=== PATIENT | female | born 2005 | race Caucasian/White ===

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

== ENCOUNTER → 2023-06-07 11:25 | Outpatient (BNVA) | payer MEDICAID, SELFPAY | PROVIDERS: PCP Pediatrics Adolescent Medicine; Visit Provider Family Medicine | DX: R30.0 Dysuria (principal); Z34.90 Encounter for supervision of normal pregnancy, unspecified, unspecified trimester | CPT/HCPCS: 80307; 81000; 81025; 87086; 87255; 87491; 87591; 87624 ==

== ENCOUNTER → 2023-06-16 15:02 | Outpatient (BNVA) | payer MEDICAID, SELFPAY | PROVIDERS: PCP Pediatrics Adolescent Medicine; Visit Provider Family Medicine | DX: Z34.90 Encounter for supervision of normal pregnancy, unspecified, unspecified trimester (principal) | CPT/HCPCS: 80053; 84144; 84443; 85025; 86592; 86762; 86803; 86850; 86900; 87340; 87806 ==

== ENCOUNTER 2023-06-28 13:54 | Outpatient (CLI) | payer MEDICAID, SELFPAY ==
--- NOTE | 2023-06-28 14:30 | US_ITS ---
WS: [id number] LIMITED OBSTETRICAL ULTRASOUND HISTORY: Dating. COMPARISON: None available. Presentation: Variable. Cervix: Closed and normal length. Placenta: Anterior. Grade: 0 HEART: FHR of 144 BPM. measurements: BPD = 2.7 cm = 14w6d; HC = 10.4 cm = 15w0d; AC = 8.5 cm = 14w6d; FL = 1.6 cm = 14w4d; Normal surrounding amniotic fluid. EFW: 105 g; AGA by ultrasound: 14w6d MARIANA by ultrasound: 12/21/2023 US/US OB <= 14 weeks fetus [id number] IMPRESSION: 1. Single intrauterine gestation of 14 weeks 6 days with EDC of 12/21/2023. 2. Normal cardiac activity.
== END 2023-06-28 13:55 | disposition home or self-care (01) ==
PROVIDERS: PCP Pediatrics Adolescent Medicine; Visit Provider Family Medicine
DX: Z34.00 Encounter for supervision of normal first pregnancy, unspecified trimester (principal)
CPT/HCPCS: 76801; 80307; 81000; 81025; 87086; 87255; 87491; 87591; 87624

== ENCOUNTER → 2023-08-09 14:32 | Outpatient (BNVA) | payer BC, MEDICAID, SELFPAY | PROVIDERS: PCP Pediatrics Adolescent Medicine; Visit Provider Family Medicine | DX: Z34.00 Encounter for supervision of normal first pregnancy, unspecified trimester (principal); A74.9 Chlamydial infection, unspecified | CPT/HCPCS: 87491; 87591 ==

== ENCOUNTER 2023-08-10 11:58 | Outpatient (CLI) | payer BC, MEDICAID, SELFPAY ==
--- NOTE | 2023-08-10 12:15 | US_ITS ---
WS: [id number] OBSTETRICAL ULTRASOUND COMPLETE HISTORY: Anatomy screening study. COMPARISON: 06/28/2023 Single intrauterine gestation in variable presentation. Vertex at the end of the exam Cervix is Closed and normal length. Cervical length is 4.7 cm. Normal amount of amniotic fluid surrounds the fetus. Placenta: Posterior, no previa or abruption. Placenta grade 1 Heart: 136 BPM. Four chambers are identified. Neither outflow tract is well imaged. Anatomy: Intracranial structures and spine are normal. kidneys, stomach and urinary bladd er are unremarkable. Abdominal wall, three-vessel cord and cord insertion site are normal. 4 extremities are present. profile: Unremarkable. Gender: Male. measurements: BPD = 4.9 cm = 20w6d; HC = 18.3 cm = 20w5d; AC = 15.8 cm = 21w0d; FL = 3.4 cm = 20w5d; EFW: 380 g. Biometry is internally concordant. AGA by ultrasound: 20w6d MARIANA by ultrasound: 12/22/2023 IMPRESSION: 1. Single intrauterine gestation of 20w6d with an MARIANA of 12/22/2023. 2. Cardiac outflow tracts are not imaged adequately. The remaining screening survey is normal.
== END 2023-08-10 11:59 | disposition home or self-care (01) ==
PROVIDERS: PCP Pediatrics Adolescent Medicine; Visit Provider Family Medicine
DX: O98.812 Other maternal infectious and parasitic diseases complicating pregnancy, second trimester (principal); A74.9 Chlamydial infection, unspecified; Z3A.20 20 weeks gestation of pregnancy
CPT/HCPCS: 76805; 87491; 87591

== ENCOUNTER 2023-08-30 12:48 | Outpatient (CLI) | payer BC, MEDICAID, SELFPAY ==
--- NOTE | 2023-08-30 13:15 | US_ITS ---
WS: [id number] ULTRASOUND OB FOCUSED HISTORY: Follow up on cardiac outflow tracts COMPARISON: 08/10/2023 Single intrauterine gestation is present in cephalic position. Cervix is closed. heart rate at 147 BPM. Additional imaging of the outflow chambers demonstrates normal appearance of the outflow tracts. LVOT is normal. RVOT is normal. IMPRESSION: Normal follow-up imaging of the RIGHT and LEFT cardiac outflow tracts.
== END 2023-08-30 12:49 | disposition home or self-care (01) ==
PROVIDERS: PCP Pediatrics Adolescent Medicine; Visit Provider Family Medicine
DX: Z34.00 Encounter for supervision of normal first pregnancy, unspecified trimester (principal)
CPT/HCPCS: 76815

== ENCOUNTER → 2023-09-08 08:54 | Outpatient (BNVA) | payer BC, MEDICAID, SELFPAY | PROVIDERS: PCP Pediatrics Adolescent Medicine; Visit Provider Family Medicine | DX: Z34.00 Encounter for supervision of normal first pregnancy, unspecified trimester (principal) | CPT/HCPCS: 82950 ==

== ENCOUNTER → 2023-11-01 14:48 | Outpatient (BNVA) | payer BC, MEDICAID, SELFPAY | PROVIDERS: PCP Pediatrics Adolescent Medicine; Visit Provider Family Medicine | DX: Z51.81 Encounter for therapeutic drug level monitoring (principal) | CPT/HCPCS: 85025 ==

== ENCOUNTER → 2023-12-01 13:31 | Outpatient (BNVA) | payer BC, MEDICAID, SELFPAY | PROVIDERS: PCP Pediatrics Adolescent Medicine; Visit Provider Family Medicine | DX: Z34.90 Encounter for supervision of normal pregnancy, unspecified, unspecified trimester (principal) | CPT/HCPCS: 87081 ==

== ENCOUNTER 2023-12-20 22:00 | Inpatient (IN) | payer BC, MEDICAID, SELFPAY ==
[2023-12-20 18:55] VITALS: BMI 32.8
[2023-12-20 19:41] VITALS: RESP 16; TEMP 36.5
[2023-12-20] MEDS: calcium carbonate 500 mg Chew Tablet 1000 MG PO (19:54)
[2023-12-20] MEDS: acetaminophen 325 mg Tablet 1000 MG PO (19:54)
[2023-12-20 21:24] VITALS: RESP 15; TEMP 36.5
[2023-12-20 21:30] VITALS: BMI 32.4
[2023-12-20 22:17] LABS: Basophils # 0.1 10^3/uL (0.0-0.1); Basophils % 0.3 %; Eosinophils % 0.1 %; Hematocrit 39.2 % (36-47); Lymphocytes # 2.1 10^3/uL (1.5-6.5); Lymphocytes % 13.7 %; Mean Corpuscular HGB Conc 34.7 g/dL (30-55); Mean Corpuscular Volume 86.5 fl (85-98); Mean Platelet Volume 11.7 fL (7.4-10.4); Monocytes # 1.3 10^3/uL (0.2-0.9); Monocytes % 8.6 %; Neutrophils # 11.66 10^3/uL (1.8-8.0); Neutrophils % 75.9 %; Nucleated Red Blood Cells % 0 %; Platelet Count 198 10^3/cmm (157-399); Red Blood Count 4.53 10^6/uL (3.85-5.65); Red Cell Distribution Width 13.4 % (12.1-15.1); White Blood Count 15.37 10^3/uL (4.5-13.0)
[2023-12-20 22:18] VITALS: RESP 15
[2023-12-20] MEDS: fentaNYL 50 mcg/mL INJ 2mL IVP ×2 (22:18→23:19)
[2023-12-20] MEDS: lactated ringers 1,000 ML 999 ML IV (23:13)
[2023-12-20 23:19] VITALS: RESP 15
[2023-12-21] VITALS (7 sets, daily range): BP systolic 102–117; BP diastolic 65–78; PULSE 70–97; RESP 17–18; TEMP 36.8–38.3; O2SAT 96
--- NOTE | 2023-12-21 00:32 | ANES.PROC ---
Anesthesia Procedures Procedure/Date: 12/21/23 Epidural: Time Out Performed: Yes Consents Signed: Procedure Consent Consent: requested by attending/covering physician, from patient, risks and benefits reviewed and patient agrees to proceed Lumbar Level: L3-L4 Epidural position: sitting Epidural procedure: sterile prep of area, 1% lidocaine to numb the area, 18 g needle, neg for paresthesia, test dose given, 1.5% xylocaine 1:200k epi, 0.2% Ropivacaine bolus ml (4cc and Fentanyl 100 mcg), placed PCEA, no systemic response, sterile dressing applied, L.U.D. no apparent complications and 0.2% Ropiavacaine @ mls/hr (10cc/hour.) Other Information: ELVIRA at 6cm. Cath placed 2 cm into space. Pt tolerated well
[2023-12-21] MEDS: dextrose 5%-lactated ringers 1,000 ML 125 ML IV ×2 (00:33→05:49)
--- NOTE | 2023-12-21 00:34 | P.ANESASSM_ITS ---
Pre-Anesthetic Assessment Height/Weight: Height 1.65 m Weight 88.451 kg Temp Resp O2 Del Method 97.7 F 15 Room Air 12/20/23 21:24 12/20/23 23:19 12/20/23 21:30 Preop Diagnosis: Labor pain STEW Was Beta Mercedez taken within 24 hours: N/A Was Clonidine taken within 24 hours: N/A Social No alcohol and No tobacco Exam alert, oriented x 3, clear to auscultation bilaterally and regular rate & rhythm Airway Submandibular: within normal limits Cervical ROM: within normal limits Mallampati: Class II Dentition: full History/ROS No significant history except as noted and No significant complaints CV/HEM None reported None reported Hepatic None reported GI None reported Metabolic None reported Musc/skel None reported Neuropsych None reported Anesthetic Plan ASA status: 2 Anesthesia: Anesthesia Evaluation and Regional (specify below) (STEW) Risk of > 500 ml blood loss (7ml/kg in children): No Medications/Allergies Home Medications Medication Instructions Recorded Confirmed Last Taken Type doxylamine succinate 25 mg tablet See Rx Instructions .Route 06/07/23 12/20/23 Unknown Rx .COMPLEX PRN allergy symptoms #30 tabs prenat.vits,june,nsn-[id number]-[id number] 1 tab PO DAILY #30 tabs 06/07/23 12/20/23 Unknown Rx pyridoxine (vitamin B6) 100 mg 100 mg PO BID PRN Nausea #60 tabs 06/07/23 12/20/23 Unknown Rx tablet ondansetron HCl 4 mg tablet 4 mg PO Q6H PRN nausea and 06/13/23 12/20/23 Unknown Rx vomiting #30 tabs acyclovir 400 mg tablet 400 mg PO BID #60 tabs 12/15/23 12/20/23 Unknown Rx Allergies Allergy/AdvReac Type Severity Reaction Status Date / Time No Known Allergies Allergy Unverified 06/07/23 11:44 Current Medications Generic Name Dose Route Start Last Admin Trade Name Freq PRN Reason Stop Dose Admin Calcium Carbonate 1,000 mg 12/20/23 19:44 12/20/23 19:54 Calcium Carbonate 500 Mg Chew Tablet PO 1,000 mg Q4H PRN Administration HEARTBURN Fentanyl 25 - 100 mcg 12/20/23 21:24 12/20/23 23:19 Fentanyl 50 Mcg/Ml Inj 2ml IVP 50 mcg Q1H PRN Administration SEVERE PAIN Dextrose/Lactated Ringer's 1,000 mls @ 125 mls/hr 12/20/23 21:30 12/21/23 00:33 Dextrose 5%-Lactated Ringers IV 125 mls/hr .Q8H MARCELLO Administration Lactated Ringer's 1,000 mls @ 999 mls/hr 12/20/23 23:08 12/20/23 23:13 Lactated Ringers IV 999 mls/hr .Q1H1M PRN Administration See label comments PFSH Anesthesia Medical History No pertinent past medical history Surgical History No pertinent past surgical history Social History Smoking and tobacco/nicotine status: never used tobacco/nicotine Alcohol intake: never Substance/Drug Use: never Female Reproductive History : 1 Data Anesthesia 12/20/23 21:45 Short CBC 12/20/23 Range/Units 21:45 WBC 15.37 H (4.5-13.0) 10^3/uL Hgb 13.60 (12.4-14.8) g/dL Hct 39.2 (36-47) % MCV 86.5 (85-98) fl Plt Count 198 (157-399) 10^3/cmm Neut % (Auto) 75.9 % Neut # (Auto) 11.66 H (1.8-8.0) 10^3/uL Blood Bank 12/20/23 21:45 Blood Type O Positive Rho(D) Type Rh positive Antibody Screen Negative Cardiac Studies: 2 No Data to Display
[2023-12-21] MEDS: ROPivacaine syringe 100 MG/50 ML SYRINGE 10 MG EPIDURAL ×2 (00:38→03:40)
[2023-12-21] MEDS: alum-mag-hydroxide-sime 30 mL UDC PO (02:24)
[2023-12-21] MEDS: ampicillin 2,000 MG in sodium chloride 0.9% (plus) 50 ML 100 MG IV ×4 (05:02→22:22)
--- NOTE | 2023-12-21 05:05 | P.HP_ITS ---
Providers/Chief Complaint 2 Admitting Physician: Ramirez Robles MD Primary Care Provider: Allison Beard MD Chief Complaint: contractions History of Present Illness Katerin Dougherty is a 18 year old @ 39.6 weeks by US inconsistent with unsure LMP. Preg c/b h/o anxiety, THC use prior to , genital herpes, chlamydia, ASCUS. The patient presented to labor and delivery triage due to contractions. Her contractions had been gradually increasing all week, however they began to get significantly stronger and closer together starting on the morning of 12/20/2023. The patient began to have contractions every 3 to 5 minutes and presented to labor and delivery triage for further evaluation. She was 1 cm dilated and 80% effaced upon presentation and changed to 2 cm dilation after 2 hours. For this reason she was kept for spontaneous labor. The patient denies any chest pains, shortness of breath, nausea, vomiting, diarrhea, constipation, dysuria, leakage of fluid. Medications/Allergies Home Medications Medication Instructions Recorded Confirmed Last Taken Type doxylamine succinate 25 mg tablet See Rx Instructions .Route 06/07/23 12/20/23 Unknown Rx .COMPLEX PRN allergy symptoms #30 tabs prenat.vits,june,tyd-mlwu-fxyaq 1 tab PO DAILY #30 tabs 06/07/23 12/20/23 Unknown Rx pyridoxine (vitamin B6) 100 mg 100 mg PO BID PRN Nausea #60 tabs 06/07/23 12/20/23 Unknown Rx tablet ondansetron HCl 4 mg tablet 4 mg PO Q6H PRN nausea and 06/13/23 12/20/23 Unknown Rx vomiting #30 tabs acyclovir 400 mg tablet 400 mg PO BID #60 tabs 12/15/23 12/20/23 Unknown Rx Allergies Allergy/AdvReac Type Severity Reaction Status Date / Time No Known Allergies Allergy Unverified 06/07/23 11:44 PFSH Acute 2 PFSH: Medical History No pertinent past medical history Surgical History No pertinent past surgical history Social History (Updated 12/21/23 @ 06:02 by Ramirez Robles MD) Smoking and tobacco/nicotine status: never used tobacco/nicotine Alcohol intake: never Substance/Drug Use: former Former substance use details: THC Female Reproductive History: : 1 Vitals/I&O/Wt Last Vital Signs Temp 97.7 F 12/20/23 21:24 Resp 15 12/20/23 23:19 O2 Del Method Room Air 12/20/23 21:30 12/20/23 12/20/23 12/21/23 14:59 22:59 06:59 Intake Total 50 / 50 Balance 50 / 50 Weight last 48 hrs Weight 195 lb Weight 197 lb Physical Exam 2 Narrative: General: Alert and oriented x3 Eyes: Pupils equal round and reactive to light and accommodation Mouth: Mucous membranes moist, pharynx non-erythematous Cardiac: Regular rate and rhythm without murmurs Lungs: Clear to auscultation bilaterally without wheezes, crackles or rhonchi Abdomen: Soft, non-tender, fundus consistent with gestational age Extremities: Trace edema in the bilateral lower extremities Urinary Catheter Management: Jordan Latex: Cath Placed During This Visit: yes Urinary Catheter Date of Insertion: 12/21/23 Urinary Catheter Time of Insertion: 01:00 Data 12/20/23 21:45 A&P Assessment and plan (1) Supervision of normal intrauterine in primigravida: The patient is in spontaneous labor. She is mary well on her own. heart tones are in the mid 150s with moderate variability and good accelerations with a category 1 tracing. We will continue with routine intrapartum care. The patient is GBS negative. She has not had any burning or symptoms of a herpes outbreak. No lesions were noted. Qualifiers: Trimester: third trimester Qualified Code(s): Z34.03 - Encounter for supervision of normal first , third trimester (2) Genital herpes: Attestations 2 Medical Necessity Statement*: The patient will be here for greater than 2 midnights due to routine intrapartum and management of labor and delivery. Coding Level of Care Code Acute Code for Chg Fwd Diagnoses Encounter for supervision of normal first in third trimester Z34.03 Trimester: third trimester Genital herpes A60.00
[2023-12-21] MEDS: lidocaine 2% INJ 20 mL INJECTION (05:20)
--- NOTE | 2023-12-21 06:04 | PM.DELIVERY ---
Delivery Note: Date of delivery: December 21, 2023 Pre-delivery diagnoses: 1. Intrauterine at 39.6 weeks gestation 2. Anxiety 3. History of genital herpes 4. Chlamydia with test of cure Post-delivery diagnoses: 1. Intrauterine status post spontaneous vaginal delivery at 5:13 AM on 12/21/2023 2. Intrapartum fever 3. Anxiety 4. History of genital herpes 5. Chlamydia with test of cure Procedure: Spontaneous vaginal delivery Delivering Physician: Ramirez Robles MD Estimated blood loss (mL): 200 Findings: 1. Healthy male weighing 8 pounds 5 ounces with Apgars of 9 and 9 2. Intact placenta with central vocal cord insertion site. Pre-Delivery Course: Katerin Dougherty is a 18 year old G1 now P1 status post spontaneous vaginal delivery @ 39.6 weeks by US inconsistent with unsure LMP. Preg c/b h/o anxiety, THC use prior to , genital herpes, chlamydia, ASCUS. The patient presented to labor and delivery triage due to contractions. Her contractions had been gradually increasing all week, however they began to get significantly stronger and closer together starting on the morning of 12/20/2023. The patient began to have contractions every 3 to 5 minutes and presented to labor and delivery triage for further evaluation. She was 1 cm dilated and 80% effaced upon presentation and changed to 2 cm dilation after 2 hours. For this reason she was kept for spontaneous labor. The patient continues to make change on her own and had spontaneous rupture membranes at 11 PM on 12/20/2023. Meconium stained fluid was noted. She received a laboring epidural. The patient had a temperature in the 99.5 range and there was tachycardia in the low to mid 160s. IV ampicillin and gentamicin was ordered at approximately 4 AM. The ampicillin was started prior to delivery, however the gentamicin was not given until after delivery. The patient continued to make good progress on her own and was complete by 5:05 AM on 12/21/2023 Delivery: The patient began pushing at 5:08 AM and pushed very well. With only a few contractions, the infant distended quickly and the delivered at 5:13 AM on 12/21/2023 in the OA position. The left shoulder was the anterior shoulder and it delivered with ease. The rest of the infant delivered with ease. A nuchal cord was noted, however it was loose and the infant delivered through this. The began crying immediately upon delivery. The infant's mouth and nose were bulb suctioned by myself. The infant was then placed on the mother's chest where the nurses were waiting to care for him. The cord was clamped by myself after approximately 1 minute. The cord was cut by the infant's grandmother. Cord blood was obtained. The cord was then drained of blood and traction was placed on umbilical cord. The placenta delivered without complication at 5:17 AM on 12/21/2023. The placenta was noted to be intact with a central umbilical cord insertion site. The cervix was inspected and no lacerations were noted. The vaginal wall was inspected and a second-degree perineal laceration was noted that extended near the rectum, but not into the rectum. 3-0 Vicryl was used in a running fashion to repair the laceration. 1% lidocaine was used locally to help with anesthesia. The patient tolerated the procedure well. A rectal exam was done and no sutures were noted in the rectal vault. , the patient did have a temperature of 100.9 degrees. We will follow her course for further signs of chorioamnionitis. History History History 1 Term 0 0 Miscarriages/Ectopic 0 Living Children 0 Past Pregnancies Del. Date GA/Weeks Outcome Route Wt Inf Gender Labor Lgth Comp. Anesthesia Location 12/21/23 39 live - full term Vaginal 8 lb 5 oz Male 7 hr regional local [facility] Delivery Date: 12/21/23 Last Updated by: Ramirez Robles MD Made quick dilation, fast 2nd stage of labor, genital herpes without lesions, borderline chorioamionitis. A&P Assessment and plan (1) Spontaneous vaginal delivery: (2) Maternal fever during labor: Coding Level of Care Code Acute Code for Chg Fwd Diagnoses Spontaneous vaginal delivery O80 Maternal fever during labor O75.2
--- NOTE | 2023-12-21 14:24 | ANE.PACU2 ---
Inpatient post-anesthesia follow up: Airway intact: Yes Vital signs: Temperature 100.9 F Pulse Rate Respiratory Rate 15 Blood Pressure Pulse Oximetry Oxygen Delivery Me thod Room Air Oxygen Flow Rate Fraction of Inspir ed Oxygen Hydration adequate: Yes Nausea and vomiting: No Pain level: 2 Mental status: Baseline Epidural Start/End: Epidural Start Date: 12/21/23 Epidural Start Time: 00:15 Epidural End Date: 12/21/23 Epidural End Time: 06:04
[2023-12-21] MEDS: lanolin oint 7 gm 1 APPLIC TOPICAL (15:00)
[2023-12-21] MEDS: ibuprofen 800 mg tablet PO ×2 (16:14→21:17)
[2023-12-21] MEDS: docusate sodium 100 mg Capsule PO (16:15)
[2023-12-21 19:28] LABS: Hematocrit 30.9 % (36-47); Mean Corpuscular HGB Conc 34.3 g/dL (30-55); Mean Corpuscular Hemoglobin 30.7 pg (27-33); Mean Corpuscular Volume 89.6 fl (85-98); Mean Platelet Volume 11.6 fL (7.4-10.4); Platelet Count 166 10^3/cmm (157-399); Red Blood Count 3.45 10^6/uL (3.85-5.65); Red Cell Distribution Width 13.8 % (12.1-15.1); White Blood Count 15.72 10^3/uL (4.5-13.0)
[2023-12-21] MEDS: HYDROcodone-acetaminophen 5-325 mg Tablet PO (19:30)
[2023-12-21] MEDS: benzocaine-menthol 78 gm Canister 1 SPRAY TOPICAL (19:31)
[2023-12-22 04:00] VITALS: BP 114/66; PULSE 79; RESP 16; TEMP 36.4; O2SAT 98
[2023-12-22] MEDS: prenatal vitamin Capsule 1 CAP PO (09:27)
[2023-12-22] MEDS: docusate sodium 100 mg Capsule PO (09:27)
[2023-12-22] MEDS: ibuprofen 800 mg tablet PO (09:28)
[2023-12-22 09:40] VITALS: BP 110/67; PULSE 92; RESP 16; TEMP 36.9
--- NOTE | 2023-12-22 16:15 | P.DS_ITS ---
Discharge Providers Date of Admission: 12/20/23 22:00 Date of Discharge: December 22, 2023 Attending Provider at Admission: Ramirez Robles MD Attending Provider at Discharge: Ramirez Robles MD Primary Care Provider: Allison Beard MD Diagnoses at Discharge Discharge Diagnosis (1) Spontaneous vaginal delivery: Status: Acute (2) Maternal fever during labor: Status: Acute Other Information Additional DC diagnoses/information: 1. Intrauterine status post spontaneous vaginal delivery 2. Intrapartum fever 3. Anxiety 4. History of genital herpes 5. Chlamydia with test of cure 6. Delivery of healthy infant male weighing 8 pounds 5 ounces with Apgars 9 and 9 Reason for Visit Reason for Visit: contractions Brief History: Katerin Dougherty is a 18 year old G1 now P1 status post spontaneous vaginal delivery @ 39.6 weeks by US inconsistent with unsure LMP. Preg c/b h/o anxiety, THC use prior to , genital herpes, chlamydia, ASCUS. The patient presented to labor and delivery triage due to contractions. Her contractions had been gradually increasing all week, however they began to get significantly stronger and closer together starting on the morning of 12/20/2023. The patient began to have contractions every 3 to 5 minutes and presented to labor and delivery triage for further evaluation. She was 1 cm dilated and 80% effaced upon presentation and changed to 2 cm dilation after 2 hours. For this reason she was kept for spontaneous labor. Hospital Course Hospital Course The patient continues to make change on her own and had spontaneous rupture membranes at 11 PM on 12/20/2023. Meconium stained fluid was noted. She received a laboring epidural. The patient had a temperature in the 99.5 range and there was tachycardia in the low to mid 160s. IV ampicillin and gentamicin was ordered at approximately 4 AM. The ampicillin was started prior to delivery, however the gentamicin was not given until after delivery. The patient continued to make good progress on her own and was complete by 5:05 AM on 12/21/2023 The patient began pushing at 5:08 AM and pushed very well. With only a few contractions, the distended quickly and the infant delivered at 5:13 AM on 12/21/2023 in the OA position. The left shoulder was the anterior shoulder and it delivered with ease. The rest of the infant delivered with ease. A nuchal cord was noted, however it was loose and the infant delivered through this. The infant began crying immediately upon delivery. The 's mouth and nose were bulb suctioned by myself. The infant was then placed on the mother's chest where the nurses were waiting to care for him. The cord was clamped by myself after approximately 1 minute. The cord was cut by the infant's grandmother. Cord blood was obtained. The cord was then drained of blood and traction was placed on umbilical cord. The placenta delivered without complication at 5:17 AM on 12/21/2023. The placenta was noted to be intact with a central umbilical cord insertion site. The cervix was inspected and no lacerations were noted. The vaginal wall was inspected and a second-degree perineal laceration was noted that extended near the rectum, but not into the rectum. 3-0 Vicryl was used in a running fashion to repair the laceration. 1% lidocaine was used locally to help with anesthesia. The patient tolerated the procedure well. the patient had a fever initially and was started on insulin with clindamycin. She was given antibiotics for 24 hours. She has had no further signs of infection and is feeling well. She is ambulating, voiding, passing gas and tolerating food by mouth. Her bleeding is decreasing well. Her pain is well-controlled. She will plan to follow-up with me 6 weeks or sooner if needed. Physical Exam Narrative: General: Alert and oriented x3 Eyes: Pupils equal round and reactive to light and accommodation Mouth: Mucous membranes moist, pharynx non-erythematous Cardiac: Regular rate and rhythm without murmurs Lungs: Clear to auscultation bilaterally without wheezes, crackles or rhonchi Abdomen: Soft, non-tender, fundus consistent with gestational age Extremities: Trace edema in the bilateral lower extremities Urinary Catheter Management: Jordan Latex: Cath Placed During This Visit: yes, but has since been removed by the nurse Reason for Continuing Indwelling Catheter: Decision to DC Catheter Urinary Catheter Date of Insertion: 12/21/23 Urinary Catheter Time of Insertion: 01:00 Date Urinary Catheter Removed: 12/21/23 Time Urinary Catheter Discontinued: 05:06 Discharge Data Studies Completed and Pending Laboratory Results WBC 15.72 10^3/uL (4.5-13.0) H 12/21/23 18:41 RBC 3.45 10^6/uL (3.85-5.65) L 12/21/23 18:41 Hgb 10.60 g/dL (12.4-14.8) L 12/21/23 18:41 Hct 30.9 % (36-47) L 12/21/23 18:41 MCV 89.6 fl (85-98) 12/21/23 18:41 MCH 30.7 pg (27-33) 12/21/23 18:41 MCHC 34.3 g/dL (30-55) 12/21/23 18:41 RDW 13.8 % (12.1-15.1) 12/21/23 18:41 Plt Count 166 10^3/cmm (157-399) 12/21/23 18:41 MPV 11.6 fL (7.4-10.4) H 12/21/23 18:41 Neut % (Auto) 75.9 % 12/20/23 21:45 Lymph % (Auto) 13.7 % 12/20/23 21:45 [place] % (Auto) 8.6 % 12/20/23 21:45 Eos % (Auto) 0.1 % 12/20/23 21:45 Baso % (Auto) 0.3 % 12/20/23 21:45 Neut # (Auto) 11.66 10^3/uL (1.8-8.0) H 12/20/23 21:45 Lymph # (Auto) 2.1 10^3/uL (1.5-6.5) 12/20/23 21:45 [place] # (Auto) 1.3 10^3/uL (0.2-0.9) H 12/20/23 21:45 Eos # (Auto) 0.0 10^3/uL (0.0-0.8) 12/20/23 21:45 Baso # (Auto) 0.1 10^3/uL (0.0-0.1) 12/20/23 21:45 Nucleated RBC % (auto) 0 % 12/20/23 21:45 Nucleated RBCs # 0.0 /100WBC 12/20/23 21:45 Blood Type O Positive 12/20/23 21:45 Rho(D) Type Rh positive 12/20/23 21:45 Antibody Screen Negative 12/20/23 21:45 Vitals Last Vital Signs Temp 98.4 F 12/22/23 09:40 Pulse 92 12/22/23 09:40 Resp 16 12/22/23 09:40 BP 110/67 12/22/23 09:40 Pulse Ox 98 12/22/23 04:00 O2 Del Method Room Air 12/22/23 09:40 Discharge Plan Discharge Patient Disposition: Home Condition: Good Prescriptions: New ibuprofen 800 mg Tablet 800 mg PO TID Qty: 60 0RF ferrous sulfate 325 mg (65 mg iron) tablet,delayed release (DR/EC) 325 mg PO DAILY Qty: 30 0RF Continued doxylamine succinate 25 mg tablet See Rx Instructions .Route .COMPLEX PRN (Reason: allergy symptoms) Qty: 30 6RF Rx Instructions: Take 1 tab by mouth each evening and 1/2 tab in the am as needed for nausea PRN; prenat.vits,june,[id number] Tablet 1 tab PO DAILY Qty: 30 9RF Discontinued pyridoxine (vitamin B6) 100 mg tablet 100 mg PO BID PRN (Reason: Nausea) Qty: 60 3RF acyclovir 400 mg tablet 400 mg PO BID Qty: 60 1RF ondansetron HCl 4 mg tablet 4 mg PO Q6H PRN (Reason: nausea and vomiting) Qty: 30 2RF Discharge Orders: Discharge Order (Routine); Ordered 12/22/23 Ordered By: Ramirez Robles Referrals: Ramirez Robles MD [Physician] - 12/26/23 3:30 pm () Discharge Diet: Regular Discharge Activity: Increase activity as tolerated Patient Instructions: Depression (GEN), OB Food/Drug Interaction Guide, OB Care at Home, Opioid Safety, OB [facility], Abnormal Bleeding, Depression Activity Restrictions/Additional Instructions: Nothing per vagina for 6 weeks. I would recommend showers instead of baths for the first 6 weeks. Discharge Attestations Time Spent in Discharge Care*: greater than 30 min Quality Metrics Clinical Quality Measures [ No reported AMI, CVA or VTE this stay] Coding Level of Care Code Acute Code for Chg Fwd Diagnoses Spontaneous vaginal delivery O80 Maternal fever during labor O75.2
[2023-12-22 18:35] VITALS: BP 105/69; PULSE 110; RESP 16; TEMP 36.6
== END 2023-12-22 18:45 | disposition home or self-care (01) | DRG 806 ==
LOC: OPOB 12-21 09:18
PROVIDERS: Admitting Provider Family Medicine; PCP Pediatrics Adolescent Medicine; Visit Provider Family Medicine
DX: O98.32 Other infections with a predominantly sexual mode of transmission complicating childbirth (principal); O75.2 Pyrexia during labor, not elsewhere classified; Z37.0 Single live birth; A60.00 Herpesviral infection of urogenital system, unspecified; O99.344 Other mental disorders complicating childbirth; F41.9 Anxiety disorder, unspecified; O77.0 Labor and delivery complicated by meconium in amniotic fluid; O76 Abnormality in fetal heart rate and rhythm complicating labor and delivery; O69.81X0 Labor and delivery complicated by cord around neck, without compression, not applicable or unspecified; O70.1 Second degree perineal laceration during delivery; Z3A.39 39 weeks gestation of pregnancy; O75.89 Other specified complications of labor and delivery; R87.610 Atypical squamous cells of undetermined significance on cytologic smear of cervix (ASC-US)
CPT/HCPCS: 36415; 51702; 59025; 59409; 83986; 85025; 85027; 86850; 86900; 96374; 96376; 99211; J0290; J1580; J2795; J3010; J7120; J7121

== ENCOUNTER → 2024-01-30 15:03 | Outpatient (BNVA) | payer BC, MEDICAID, SELFPAY | PROVIDERS: PCP Pediatrics Adolescent Medicine; Visit Provider Family Medicine | DX: R87.620 Atypical squamous cells of undetermined significance on cytologic smear of vagina (ASC-US) (principal); Z39.2 Encounter for routine postpartum follow-up | CPT/HCPCS: 88175 ==

== ENCOUNTER 2025-06-20 12:12 | Emergency (ER) | payer BC, MEDICAID, SELFPAY ==
[2025-06-20 12:15] VITALS: BP 103/62; PULSE 84; RESP 17; TEMP 36.7; O2SAT 100; BMI 27.9
[2025-06-20] MEDS: ondansetron 2 mg/ML SDV 2 mL 4 MG IVP (13:37)
--- NOTE | 2025-06-20 13:45 | ED_ITS ---
HPI - Nausea/Vomiting/Diarrhea 2 General: Chief complaint: Nausea/Vomiting/Diarrhea Stated complaint: spotting (7wk preg) Time Seen by Provider: 06/20/25 13:29 History of Present Illness: 19-year-old female who is approximately 7 weeks who has been having issues with nausea and vomiting and has been seen by her primary provider and she has Zofran which she says has been helping some. However not always and today she had some vomiting and had a small amount of blood in her vomit. This was her main reason for coming to the emergency room. No pelvic cramping. No bleeding. No vaginal discharge. No dysuria. Related Data Previous Rx's ?Medication ?Instructions ?Recorded ferrous sulfate 325 mg (65 mg 325 mg PO DAILY #30 tabs 12/22/23 iron) tablet,delayed release ondansetron 8 mg disintegrating 8 mg PO Q6H #14 tabs 0 06/20/25 tablet promethazine 25 mg rectal 25 mg SC Q6H PRN nausea and 06/20/25 suppository vomiting #12 ea Allergies Allergy/AdvReac Type Severity Reaction Status Date / Time No Known Allergies Allergy Verified 09/17/24 09:57 Review of Systems 2 Narrative: Constitutional symptoms: Negative except as documented in HPI. Skin symptoms: Negative except as documented in HPI. Eye symptoms: Negative except as documented in HPI. ENMT symptoms: Negative except as documented in HPI. Respiratory symptoms: Negative except as documented in HPI. Cardiovascular symptoms: Negative except as documented in HPI. Gastrointestinal symptoms: Negative except as documented in HPI. Genitourinary symptoms: Negative except as documented in HPI. Musculoskeletal symptoms: Negative except as documented in HPI. Neurologic symptoms: Negative except as documented in HPI. Psychiatric symptoms: Negative except as documented in HPI. Endocrine symptoms: Negative except as documented in HPI. PFSH ED 2 PFSH: Medical History (Updated 06/20/25 @ 14:56 by Patricia Rico MD) Genital herpes No pertinent past medical history Surgical History No pertinent past surgical history Family History Grandmother Breast cancer maternal Father Diabetes Mother Ovarian cancer Denies family history of Colon cancer Prostate cancer Heart disease Hypercholesteremia Hypertension Uterine cancer Thyroid disease Stroke Female Reproductive History: Date of last menstrual period: 05/02/25 Physical Exam 2 Narrative: EXAM NARRATIVE: General: Alert, no acute distress. Skin: Warm, dry. Head: Normocephalic, atraumatic. Neck: Supple, trachea midline. Eye: Extraocular movements are intact. Ears, nose, mouth and throat: Tacky oral mucosa Cardiovascular: Regular, Normal peripheral perfusion. Respiratory: Lungs are clear to auscultation, respirations are non-labored, breath sounds are equal, Symmetrical chest wall expansion. Gastrointestinal: Soft, Nontender, Non distended Musculoskeletal: Normal ROM, no deformity. Neurological: Alert and oriented, No focal neurological deficit observed. Psychiatric: Cooperative, appropriate mood & affect. Course 2 Vital Signs: Vital signs: Vital Signs Temperature 98.0 F 06/20/25 12:15 Pulse Rate 62 06/20/25 14:09 Respiratory Rate 14 06/20/25 14:09 Blood Pressure 105/60 06/20/25 14:09 Pulse Oximetry 100 06/20/25 14:09 Oxygen Delivery Me thod Room Air 06/20/25 14:09 MDM - Nausea/Vomiting/Diarrhea Medical Decision Making Medical decision making: Di Medical Records Medical decision making: Differential diagnosis for this patient with nausea and vomiting including but not limited to and based on the above HPI, review of systems and physical exam: Urinary tract infection. Appendicitis. Cholecystitis. Hyperemesis. Dehydration. Renal failure. Gastroenteritis. Orders placed to evaluate differential diagnosis based on the above differential, HPI and physical exam Lab Review: Laboratory results were reviewed and interpreted by myself the emergency room physician. No leukocytosis. No anemia. No renal failure. No urinary tract infection. Lipase is negative I reviewed the patient's medical record. Reexamination: Patient remained stable. No increased work of breathing. No altered mental status. No focal motor deficits. Assessment and plan: Vomiting in Dehydration ? Normal saline bolus and IV Zofran. - Discharged home - Discussed plan with patient. Answered any questions. - Evaluation and treatment of this problem were appropriate in the emergency setting. : Lab Data 06/20/25 13:35 06/20/25 13:35 Laboratory Results WBC 7.10 10^3/uL (3.29-11.43) 06/20/25 13:35 RBC 4.71 10^6/uL (3.85-5.65) 06/20/25 13:35 Hgb 13.70 g/dL (11.27-16.99) 06/20/25 13:35 Hct 39.1 % (36-47) 06/20/25 13:35 MCV 83.0 fl (85-98) L 06/20/25 13:35 MCH 29.1 pg (27-33) 06/20/25 13:35 MCHC 35.0 g/dL (30-55) 06/20/25 13:35 RDW 11.9 % (12.1-15.1) L 06/20/25 13:35 Plt Count 254 10^3/cmm (157-399) 06/20/25 13:35 MPV 10.0 fL (7.4-10.4) 06/20/25 13:35 Neut % (Auto) 68.4 % 06/20/25 13:35 Lymph % (Auto) 23.0 % 06/20/25 13:35 [place] % (Auto) 7.6 % 06/20/25 13:35 Eos % (Auto) 0.3 % 06/20/25 13:35 Baso % (Auto) 0.3 % 06/20/25 13:35 Neut # (Auto) 4.86 10^3/uL (1.8-7.7) 06/20/25 13:35 Lymph # (Auto) 1.6 10^3/uL (0.8-4.8) 06/20/25 13:35 [place] # (Auto) 0.5 10^3/uL (0.2-0.9) 06/20/25 13:35 Eos # (Auto) 0.0 10^3/uL (0.0-0.8) 06/20/25 13:35 Baso # (Auto) 0.0 10^3/uL (0.0-0.1) 06/20/25 13:35 Nucleated RBC % (auto) 0 % 06/20/25 13:35 Nucleated RBCs # 0.0 /100WBC 06/20/25 13:35 Sodium 136 mmol/L (136-145) 06/20/25 13:35 Potassium 3.8 mmol/L (3.5-5.1) 06/20/25 13:35 Chloride 101 mmol/L (98-107) 06/20/25 13:35 Carbon Dioxide 21 mmol/L (22-29) L 06/20/25 13:35 Anion Gap 17.8 (5-19) 06/20/25 13:35 BUN 8 mg/dL (6-20) 06/20/25 13:35 Creatinine 0.5 mg/dL (0.5-0.9) 06/20/25 13:35 GFR Calculation 155.7 mL/min (90-130) H 06/20/25 13:35 Glucose 79 mg/dL (65-115) 06/20/25 13:35 Calculated Osmolality 279 mOsm/kg (285-295) L 06/20/25 13:35 Calcium 9.8 mg/dL (8.5-10.5) 06/20/25 13:35 Total Bilirubin 0.4 mg/dL (0.15-1.2) 06/20/25 13:35 AST 20 U/L (0-32) 06/20/25 13:35 ALT 21 U/L (0-33) 06/20/25 13:35 Alkaline Phosphatase 75 U/L (35-105) 06/20/25 13:35 Total Protein 7.9 g/dL (6.6-8.7) 06/20/25 13:35 Albumin 4.5 g/dL (3.5-5.2) 06/20/25 13:35 Globulin 3.4 g/dL (1.3-4.6) 06/20/25 13:35 Lipase 29 U/L (13-60) 06/20/25 13:35 Ser , Semi-Qnt 04443.00 mIU/mL 06/20/25 13:35 Urine Color Yellow (Yellow) 06/20/25 13:50 Urine Appearance Clear (CLEAR) 06/20/25 13:50 Urine pH 7.0 (5-7) 06/20/25 13:50 Ur Specific [place] 1.014 (1.005-1.030) 06/20/25 13:50 Urine Protein Negative (Negative) 06/20/25 13:50 Urine Glucose (UA) Negative (Normal) 06/20/25 13:50 Urine Ketones Negative (Negative) 06/20/25 13:50 Urine Blood Negative (Negative) 06/20/25 13:50 Urine Nitrate Negative (Negative) 06/20/25 13:50 Urine Bilirubin Negative (Negative) 06/20/25 13:50 Urine Urobilinogen 0.2 mg/dL (Negative) 06/20/25 13:50 Ur Leukocyte Esterase Negative (Negative) 06/20/25 13:50 Urine RBC 0-2 /hpf (0-2) 06/20/25 13:50 Urine WBC 0-5 /hpf (0-5) 06/20/25 13:50 Ur Squamous Epith Cells 0-5 /hpf (0-5) 06/20/25 13:50 Amorphous Sediment Not Reportable 06/20/25 13:50 Urine Bacteria None seen /hpf (NONE) 06/20/25 13:50 Hyaline Casts 0.40 /lpf 06/20/25 13:50 No radiology studies performed this visit Discharge Plan Discharge Patient Disposition: Home Clinical Impression: Vomiting affecting Condition: Stable Prescriptions: New promethazine 25 mg suppository 25 mg SC Q6H PRN (Reason: nausea and vomiting) Qty: 12 0RF ondansetron 8 mg tablet,disintegrating 8 mg PO Q6H Qty: 14 0RF Rx Instructions: Take 1/2-1 tab every 6 hours as needed for nausea and vomiting No Action ferrous sulfate 325 mg (65 mg iron) tablet,delayed release (DR/EC) 325 mg PO DAILY Qty: 30 0RF Discharge Orders: Discharge ED (Routine); Ordered 06/20/25 Ordered By: Patricia Rico Referrals: Gelacio Waters MD [Primary Care Provider, Family Practice] Patient Instructions: Opioid Safety, Pain Management, Patient Portal & Monica Instructions Activity Restrictions/Additional Instructions: Thank you for choosing [facility] for your healthcare needs today. You have been screened and evaluated and felt safe for discharge. Health conditions do change or evolve sometimes and as such it is important that you follow up with your Primary Doctor to be re checked, 3-5 days is a general good time frame for follow up. You are always welcome to return to the ED for re assessment if your symptoms are worsening or you have new concerns Print Language: Pashto Coding Level of Care Code ED Dinkey Operator Slag for Juan Daniel Chambers
[2025-06-20 14:05] LABS: Hematocrit 39.1 % (36-47); Hemoglobin 13.70 g/dL (11.27-16.99); Mean Corpuscular HGB Conc 35.0 g/dL (30-55); Mean Corpuscular Hemoglobin 29.1 pg (27-33); Mean Corpuscular Volume 83.0 fl (85-98); Nucleated Red Blood Cells % 0 %; Platelet Count 254 10^3/cmm (157-399); Red Blood Count 4.71 10^6/uL (3.85-5.65); White Blood Count 7.10 10^3/uL (3.29-11.43)
[2025-06-20 14:09] VITALS: BP 105/60; PULSE 62; RESP 14; O2SAT 100
[2025-06-20 14:24] LABS: Glucose Urine UA Negative (Normal); Nitrate Urine Negative (Negative); Specific Gravity, Urine 1.014 (1.005-1.030)
[2025-06-20 14:51] LABS: Alanine Aminotransferase 21 U/L (0-33); Albumin Level 4.5 g/dL (3.5-5.2); Alkaline Phosphatase 75 U/L (35-105); Anion Gap 17.8 (5-19); Aspartate Amino Transferase 20 U/L (0-32); Blood Urea Nitrogen 8 mg/dL (6-20); Calcium 9.8 mg/dL (8.5-10.5); Carbon Dioxide 21 mmol/L (22-29); Chloride 101 mmol/L (98-107); Creatinine Clr Calc Pharmacy 181.7373; Globulin 3.4 g/dL (1.3-4.6); Glucose 79 mg/dL (65-115); Lipase 29 U/L (13-60); Osmolality Calculated 279 mOsm/kg (285-295); Potassium 3.8 mmol/L (3.5-5.1); Sodium 136 mmol/L (136-145); Total Protein 7.9 g/dL (6.6-8.7)
[2025-06-20 15:07] VITALS: BP 110/60; PULSE 73; RESP 14; O2SAT 100
== END 2025-06-20 15:20 | disposition home or self-care (01) ==
PROVIDERS: Emergency Provider Emergency Medicine; PCP Family Medicine
DX: O21.9 Vomiting of pregnancy, unspecified (principal); Z3A.01 Less than 8 weeks gestation of pregnancy
CPT/HCPCS: 36415; 80053; 81001; 83690; 84702; 85025; 96361; 96374; 99284; J2405; J7030

== ENCOUNTER 2025-11-07 20:46 | Outpatient (CLI) | payer BC, MEDICAID, SELFPAY ==
[2025-11-07 21:02] VITALS: BP 126/69; PULSE 78
[2025-11-07 21:17] VITALS: BP 121/67; PULSE 75
[2025-11-07 21:32] VITALS: BP 116/65; PULSE 77
[2025-11-07 21:44] VITALS: BMI 30.6
[2025-11-07 21:47] VITALS: BP 123/70; PULSE 88
[2025-11-07 21:51] VITALS: BP 124/71; PULSE 79
[2025-11-07 21:55] VITALS: BP 123/70; PULSE 88; TEMP 36.7; O2SAT 100
== END 2025-11-07 21:55 | disposition home or self-care (01) ==
LOC: OPOB 20:54 → OBGYN 20:55
PROVIDERS: PCP Family Medicine; Visit Provider Family Medicine
DX: O26.899 Other specified pregnancy related conditions, unspecified trimester (principal); Z3A.00 Weeks of gestation of pregnancy not specified; R10.9 Unspecified abdominal pain; R25.2 Cramp and spasm
CPT/HCPCS: 59025; 99211